=== PATIENT | female | born 1945 | race Caucasian/White ===

== ENCOUNTER 2017-05-29 20:01 | Emergency (ER) | payer OTHER ==
[~2017-05-29] VITALS: Ht 154.9 cm; Wt 51.8 kg
[2017-05-29 20:07] VITALS: TEMP 36.7; Ht 154.9 cm; Wt 51.8 kg
[2017-05-29] MEDS ORDERED: LISI-725 PO (21:14)
[2017-05-29] MEDS ORDERED: CALC-20 PO (21:14)
[2017-05-29] MEDS ORDERED: CLR10 PO (21:14)
[2017-05-29] MEDS ORDERED: ASPI81TA28 PO (21:14)
[2017-05-29] MEDS ORDERED: MULT-506 PO (21:14)
[2017-05-29] MEDS ORDERED: FLUT0.15 NAE (21:14)
--- NOTE | 2017-05-29 21:51 | EMERGENCY ROOM VISIT NOTE ---
History Report prepared by Kaylynnibnettie: Ingrid Hearn Under the Supervision of: Dr. Ean Scherer D.O. First contact with patient: 20:45 Chief Complaint: SWELLING TO EXTREMITY Stated Complaint: SWELLING ON L SIDE OF FACE LIP History of Present Illness The patient is a 72 year old female who presents to the Emergency Room with complaints of persistent left sided facial swelling that began prior to arrival. The patient states that she was evaluated at [facility] today and was sent to the emergency department for further work up and evaluation. She states that she first noticed the swelling in her lower lip, and then noticed it in her upper lip and left face. The patient denies any change in medication or change in food. She denies any recent insect or bug bite. The patient denies any dental pain, rash, hives, difficulty breathing, or fever. She states that she feels stiff. The patient denies this ever happening in the past. She states that she takes Lisinopril for hypertension for the past several years. Source of History: patient Onset: prior to arrival Position: other (left facial) Quality: other (swelling) Timing: other (persistent) Associated Symptoms: No fevers, No rash Review of Systems See HPI for pertinent positives & negatives. A total of 10 systems reviewed and were otherwise negative. Past Medical & Surgical Medical Problems: (1) Hypertension Family History No pertinent family history stated. Social History Smoking Status: Never Smoker Marital Status: Housing Status: lives with significant other Current/Historical Medications Scheduled Aspirin (Aspirin Ec), 0.5 TAB PO DAILY Calcium Carbonate-Vitamin D (Calcium 600 + D), 1 TAB PO BID Fluticasone Propionate (Nasal) (Flonase Allergy Relief), 1 SPRAY SARAH DAILY Lisinopril (Zestril), 20 MG PO DAILY Loratadine (Claritin), 10 MG PO DAILY Multivitamin (Multivitamin), 1 TAB PO DAILY Allergies Coded Allergies: Sulfa Antibiotics (Unverified Allergy, Severe, FULL BODY RASH, 05/29/17) Penicillins (Unverified Allergy, Unknown, A CHILD, 05/29/17) Physical Exam Vital Signs Date Time Temp Pulse Resp B/P (MAP) Pulse Ox O2 Delivery O2 Flow Rate FiO2 05/29/17 20:07 36.7 100 20 136/63 98 Room Air Physical Exam CONSTITUTIONAL/VITAL SIGNS: Reviewed / noted above. GENERAL: Non-toxic in appearance. INTEGUMENTARY: Warm, dry, and [place]. HEAD: Normocephalic. EYES: without scleral icterus or trauma. ENT/OROPHARYNX: Edema of the left upper and lower lip, clear and moist. LYMPHADENOPATHY/NECK: Is supple without lymphadenopathy or meningismus. RESPIRATORY: Lungs clear and equal. CARDIOVASCULAR: Regular rate and rhythm. GI/ABDOMEN: Soft and nontender. No organomegaly or pulsatile mass. No rebound or guarding. Normal bowel sounds. EXTREMITIES: Warm and well perfused. BACK: No CVA tenderness. NEUROLOGICAL: Intact without focal deficits. PSYCHIATRIC: normal affect. MUSCULOSKELETAL: Normally developed with good muscle tone. Medical Decision & Procedures ED Course 2103: Previous medical records were reviewed. The patient was evaluated in room B7. A complete history and physical examination was performed. I discussed the exam findings with her and I discussed the treatment plan. She verbalized complete understanding and agreement. She is ready to go home shortly. Medical Decision Differential diagnosis: Etiologies such as allergic reaction, anaphylaxis, urticaria, Zaldivar-Sai syndrome, toxic epidermal necrolysis, erythema multiforme, cellulitis, angioedema, as well as others were entertained. This is a 72-year-old female who presents to the ED with a chief complaint of of swelling her left upper lower lip. The symptoms occurred around 5:30 PM today. She took some Benadryl and her symptoms did improve some. She states the swelling seems to have improved since that time. She denies any unusual activities, ingestions or pain. She is not had any fevers or dental pain. Denies trauma. Exam of her medications reveals that she is chronically on lisinopril. This is possibly the cause of her symptoms. She was told to discontinue the lisinopril. She will take Benadryl as needed. She is felt to be stable for discharge. There is no clinical findings to suggest airway compromise. Medication Reconcilliation Current Medication List: was personally reviewed by me Blood Pressure Screening Patient's blood pressure: Elevated blood pressure Blood pressure disposition: Elevated BP felt to be situational, Did not require urgent referral Impression Primary Impression: Angioedema Scribe Attestation The scribe's documentation has been prepared under my direction and personally reviewed by me in its entirety. I confirm that the note above accurately reflects all work, treatment, procedures, and medical decision making performed by me. Departure Information Dispostion Home / Self-Care Referrals Ivory Wu M.D. (PCP) Patient Instructions ED Angioedema, My [facility] Additional Instructions Take Benadryl as needed. Anticipate improvement of swelling over the next several days. If symptoms worsen, you develop pain, fevers, increased swelling or difficulty breathing, return for reevaluation. Discontinue lisinopril as this is likely the cause for your angioedema/swelling of the lips. Follow-up with your doctor next week for recheck.
[2017-05-29 22:01] VITALS: BP 139/94; PULSE 94; O2SAT 96
== END 2017-05-29 22:02 | disposition home or self-care (01) ==
LOC: C.EDB 20:02
DX: T78.3XXA Angioneurotic edema, initial encounter (principal); X58.XXXA Exposure to other specified factors, initial encounter; I10 Essential (primary) hypertension; Z79.82 Long term (current) use of aspirin